=== PATIENT | male | born 1945 | race Caucasian/White ===

== ENCOUNTER 2017-01-26 07:38 | Inpatient (IN) | payer OTHER, MEDICARE ==
[~2017-01-26] VITALS: Ht 182.8 cm; Wt 86.2 kg
--- NOTE | ~2017-01-26 | CON ---
[place], [place] REPORT OF CONSULTATION NAME: AUNG CARBONE UNIT #: [id number] ROOM: [facility] DOCTOR: FINN LOUIS MD BIRTHDATE: [birth year] DOS: 01/26/2017 CARDIOLOGY CONSULTATION REASON FOR CONSULTATION: Near syncope. HISTORY OF PRESENT ILLNESS: The patient is a 72-year-old man who has a history of coronary artery disease and carotid vascular disease along with history of hyperthyroidism. He states that since about 2006. He has had several heart attacks. Two of these were managed in [facility], with angioplasty and stents. The third one resulted in an apparent cardiac arrest. He was life-flighted from the [facility] to one of the [facility] facilities where he did undergo catheterization and angioplasty. All of these records are unavailable to me at this time. He was admitted to the [facility] in April 2016 with a near syncopal episode. He was working outdoors when he began feeling hot and dizzy and lightheaded. He took nitroglycerin and became near syncopal. He was brought to the Emergency Room where he ruled out for an acute myocardial infarction. An echocardiogram showed normal left ventricular size and systolic function with an ejection fraction of 65%. There was stage I left ventricular diastolic relaxation abnormalities with mild mitral insufficiency. A pharmacologic stress test was also done and showed a large fixed inferolateral defect, but no evidence for ischemia, ejection fraction by nuclear perfusion study was 58%. The patient was treated with beta blockers and allowed to go home. 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 The patient states that for the last few weeks, he has noticed increasing dyspnea, in the last few days this has become much worse. He notes that he checks his blood pressure at home with an automated cuff and typically his heart rate is 75-80. For the last 2 days his pulse has been in the 35-40 range. He has noticed increased dyspnea, last night he tried to sleep but felt that he was not breathing properly and that he had stopped breathing. He therefore came to the Emergency Room. He was found to be in second degree heart block (high grade AV block) with 2:1 AV conduction. Beta blockers were stopped and he was hospitalized for further assessment. Today, he feels a bit better, but he is at bed rest. His pulse remains about 45-50; blood pressure is stable at about 130/70. Serial troponin levels have been normal at 0.024 and 0.022 respectively. His electrocardiogram does show high grade AV block with 2:1 conduction. The QRS complexes are fairly narrow. There is no acute ST elevation. PAST MEDICAL HISTORY: Includes; 1. Atherosclerotic heart disease, status post myocardial infarctions in about 2006 and again in about 2009 or 2011. 2. Carotid vascular disease status post right carotid endarterectomy. 3. Type 2 diabetes mellitus. 4. Essential hypertension. [place], [place] REPORT OF CONSULTATION NAME: AUNG CARBONE UNIT #: [id number] ROOM: [facility] DOCTOR: FINN LOUIS MD BIRTHDATE: [birth year] 5. Hyperthyroidism. The patient is status post right partial thyroidectomy and is currently on thyroid suppression with methimazole. 5. The chart indicates a history of melanoma. 6. Recurrent syncope as noted above. MEDICATIONS: Prior to admission included artificial tears p.r.n., aspirin 81 mg daily, clopidogrel 75 mg daily, finasteride 5 mg daily, glipizide 10 mg twice a day, lisinopril 40 mg daily, metformin 500 mg 2 tablets twice a day, methimazole 5 mg daily (the patient has been out of this drug for about a month) metoprolol 50 mg b.i.d., rosuvastatin 20 mg at bedtime, tamsulosin 0.4 mg daily, nitroglycerin sublingually p.r.n. and ketaconazole shampoo p.r.n. ALLERGIES: The patient lists allergies to LATEX, WHICH CAUSES ANAPHYLAXIS AND SIMVASTATIN, WHICH CAUSED RASH. FAMILY HISTORY: His father at age 73 from a heart attack. His mother in her 60s from breast cancer. REVIEW OF SYSTEMS: The patient denies diplopia, loss of vision, or focal weakness. He has had lightheadedness and near syncope, but denies actually passing out recently, he has not had any nausea or vomiting. He denies any fevers, chills or sweats. He did have some aching in his left axilla associated with this and he states that it hurts to take a deep breath on occasions recently. He denies any hemoptysis or hematemesis. He denies change in bowel or bladder habits. He has bleeding from his stools or urine. He denies any peripheral edema. He denies any recent skin rashes. Remainder of the review of systems is negative except as noted above. SOCIAL HISTORY: The patient raises horses for a living. He was an ex-smoker. He does not consume excessive amounts of alcohol. PHYSICAL EXAMINATION: GENERAL: The patient is a well-nourished white male who is awake, alert and oriented. VITAL SIGNS: Pulse is 40 and regular; blood pressure is 132/68. He is afebrile. He weighs 86.2 kg and has a body mass index 25.8. HEENT: Normocephalic, atraumatic. Extraocular muscles are intact. Sclerae are clear. Pupils are equal, round and reactive to light. The oral mucosa is moist. Tongue is midline. NECK: Supple. He has no jugular distention. Carotids are full. I heard no bruits. He had no neck or supraclavicular masses. No thyromegaly. LUNGS: Respirations are unlabored. His chest is clear to auscultation and percussion. He has no presacral edema or chest wall tenderness. CARDIOVASCULAR: His heart has a regular rhythm. He has a fourth heart sound. I did not hear a third heart sound or significant murmur. The pulse is quite slow. The PMI is not displaced. There is no precordial heave, lift or thrill. ABDOMEN: Soft and normally active without masses, organomegaly or bruits. EXTREMITIES: Showed no edema. Peripheral pulses are palpable in the feet. LABORATORY DATA: I reviewed his electrocardiogram; it shows sinus rhythm at a [place], [place] REPORT OF CONSULTATION NAME: AUNG CARBONE UNIT #: [id number] ROOM: [facility] DOCTOR: FINN LOUIS MD BIRTHDATE: [birth year] rate of about 90 with high grade (2:1) AV block. He has no acute ST elevations or depressions. Troponins have been normal as noted above. TSH is pending. Hemoglobin is 14.9, white count 12,600. Sodium 144, potassium 4.3, BUN 34, creatinine 1.45. IMPRESSIONS: 1. Conduction system disorder with high grade AV block. The QRS complexes are fairly narrow indicating that the block is high in his ____ system. He has not had any prolonged pauses as of now. 2. Atherosclerotic heart disease, status post previous myocardial infarctions and stents. 3. Type 2 diabetes mellitus. 4. Hypertension. 5. Carotid vascular disease status post right carotid endarterectomy. 6. History of hyperthyroidism. The patient is status post partial thyroidectomy and is on thyroid suppression with Tapazole. PLAN: We will withhold his metoprolol and observe his heart monitor. I think, however, in the long run it is very likely that he will require placement of a pacemaker. With his atherosclerotic heart disease, beta blockers are certainly indicated in his management and I doubt that he will be able to take beta blockers in the future unless he does have a pacemaker. I have discussed this with him and he would prefer to go to the [facility] for evaluation and placement of pacemaker. I will discuss this with his hospitalist physicians and they can make those arrangements. For now, I would avoid any heart rate slowing medications. I thank the hospitalist group for asking our advice regarding his care. FINN LOUIS MD CM:CONSTR:REPORT OF CONSULTATION 1612 01/26/17 2003 interface
--- NOTE | ~2017-01-26 | EKG ---
[place], [place] ELECTROCARDIOGRAM REPORT NAME: AUNG CARBONE UNIT #: [id number] ROOM: [facility] DOCTOR: FINN LOUIS MD BIRTHDATE: [birth year] DOS: 01/26/2017 TIME: 0747 hours. FINDINGS: 1. Sinus rhythm with sinus rate of 94. 2. High-grade AV block with 2-1 AV block noted. 3. No acute ST changes. 4. Possible left ventricular hypertrophy. 5. Abnormal electrocardiogram. FINN LOUIS MD CM:EKGRPT:ELECTROCARDIOGRAM REPORT 34 17 FINN LOUIS MD
[~2017-01-26 07:38] MED LIST: ALPROSTADIL NAS; AMLODIPINE5 MG PO; ASCRIPTIN ENTER81 MG; ASPIRIN81 M1 PO; CLOPIDOGREL75 MG; CRESTOR20 M1 PO; CRESTOR40 MG PO; CVS LUBRICATING15 ML OP; EFFIENT10 MG PO; FINASTERIDE5 M1 PO; FISH OIL 10001000 MG; FLOMAX0.4 MG PO; FLUOXETINE HCL10 MG PO; FLUOXETINE HCL20 MG PO; GLUCOTROL5 MG PO; KETOCONAZOLE S120 M1 TP; LOPRESSOR50 M1 PO; METFORMIN HYD1000 MG PO; METHIMAZOLE5 M1 PO; METOPROLOL SUCC25 M2 PO; METOPROLOL25 MG PO; Metformin Hydr500 MG PO; NAPROSYN250 MG PO; NITROSTAT0.4 MG SL; OPTIVE SENSITI0.4 ML OP; PLAVIX75 MG PO; POLYMYCIN B/TRI10 ML OP; PRINIVIL20 MG PO; TAPAZOLE5 MG PO; [UNRECOGNIZED DRUG - OTHER] PO; [UNRECOGNIZED DRUG - OTHER] PO
[2017-01-26 07:47] VITALS: BP 170/62
[2017-01-26 08:06] LABS: BASO % 0.3 % (0.0-1.0); EOS # 0.1 10*3/uL (0.0-0.4); HEMATOCRIT 45.7 % (42.0-52.0); HEMOGLOBIN 14.9 g/dl (14.0-18.0); IG # 0.1 10*3/uL (0.0-0.1); LYMPH # 1.4 10*3/uL (1.3-4.4); LYMPH % 11.4 % (27.0-41.0); MEAN CELL VOLUME 84.3 fl (80.0-94.0); MEAN CORPUSCULAR HGB 27.5 pg (27.0-31.0); MEAN CORPUSCULAR HGB CONC 32.6 g/dl (33.0-37.0); MEAN PLATELET VOLUME 10.5 fl (9.6-12.3); MONO # 1.2 10*3/uL (0.1-1.0); MONO % 9.3 % (3.0-9.0); NEUT # 9.8 10*3/uL (2.3-7.9); NEUT % 77.5 % (47.0-73.0); PLATELET COUNT AUTOMATED 167 10*3/uL (130-400); RED BLOOD COUNT 5.42 10*6/uL (4.50-5.90); RED CELL DISTRI WIDTH 15.9 % (0-14.5); WHITE BLOOD COUNT 12.6 10*3/uL (4.8-10.8)
[2017-01-26] MEDS ORDERED: LISINOPRIL40 MG PO (08:14)
[2017-01-26] MEDS ORDERED: FLOMAX0.4 MG PO (08:15)
[2017-01-26 08:17] LABS: PROTHROMBIN TIME 10.6 SECONDS (9.0-12.4)
[2017-01-26] MEDS ORDERED: GLUCOSE4 G1 PO (08:19)
[2017-01-26] MEDS ORDERED: LOPRESSOR50 M1 PO (08:21)
[2017-01-26] MEDS ORDERED: PROSCAR5 M1 PO (08:22)
[2017-01-26 08:23] LABS: ALBUMIN 3.3 gm/dl (3.1-4.5); BILIRUBIN, TOTAL 0.8 mg/dl (0.2-1.0); POTASSIUM 4.3 mmol/L (3.5-5.1); TOTAL PROTEIN 6.5 gm/dL (6.4-8.2)
[2017-01-26 08:24] LABS: TROPONIN I 0.024 ng/ml (<0.045)
[2017-01-26] MEDS ORDERED: GLIPIZIDE10 M2 PO (08:24)
[2017-01-26] MEDS ORDERED: METFORMIN500 MG PO (08:25)
[2017-01-26 09:30] VITALS: BP 142/88
[2017-01-26 11:28] VITALS: BP 136/90
[2017-01-26 12:00] VITALS: BP 132/68
[2017-01-26 12:16] LABS: CKMB 3.9 ng/ml (0.5-3.6)
[2017-01-26 16:00] VITALS: BP 120/69; BP 136/66
[2017-01-26 19:00] LABS: CKMB 3.6 ng/ml (0.5-3.6)
[2017-01-26 19:42] LABS: TROPONIN I 0.02 ng/ml (<0.045)
[2017-01-26 20:00] VITALS: BP 139/61
== END 2017-01-26 22:53 | disposition short-term general hospital (02) | DRG 308 ==
LOC: ED 07:38 → EDHOLD 11:03 → ICCU 11:45
PROVIDERS: Emergency Medicine; Family Medicine
DX: I44.1 Atrioventricular block, second degree (principal); N17.0 Acute kidney failure with tubular necrosis; I10 Essential (primary) hypertension; E78.5 Hyperlipidemia, unspecified; E11.65 Type 2 diabetes mellitus with hyperglycemia; E05.90 Thyrotoxicosis, unspecified without thyrotoxic crisis or storm; I25.10 Atherosclerotic heart disease of native coronary artery without angina pectoris; D72.829 Elevated white blood cell count, unspecified; Z95.5 Presence of coronary angioplasty implant and graft; Z85.46 Personal history of malignant neoplasm of prostate; Z87.891 Personal history of nicotine dependence; Z82.49 Family history of ischemic heart disease and other diseases of the circulatory system; Z80.3 Family history of malignant neoplasm of breast; Z91.040 Latex allergy status; Z88.8 Allergy status to other drugs, medicaments and biological substances; Z79.82 Long term (current) use of aspirin; Z79.899 Other long term (current) drug therapy; Z79.84 Long term (current) use of oral hypoglycemic drugs; I25.2 Old myocardial infarction

== ENCOUNTER 2017-04-14 12:40 | Emergency (ER) | payer OTHER, MEDICARE ==
[~2017-04-14] VITALS: Ht 182.8 cm; Wt 82.6 kg
[~2017-04-14 12:40] MED LIST changes: +GLIPIZIDE10 M2 PO; +GLUCOSE4 G1 PO; +LISINOPRIL40 MG PO; +METFORMIN500 MG PO; +PROSCAR5 M1 PO
[2017-04-14] MEDS ORDERED: ELIQUIS2.5 M1 PO (12:47)
[2017-04-14] MEDS ORDERED: KEFLEX500 M1 PO (13:17)
== END 2017-04-14 13:30 | disposition home or self-care (01) ==
LOC: ED 12:40
DX: S80.211A Abrasion, right knee, initial encounter (principal); L08.9 Local infection of the skin and subcutaneous tissue, unspecified; I10 Essential (primary) hypertension; E78.5 Hyperlipidemia, unspecified; Z87.891 Personal history of nicotine dependence; E11.9 Type 2 diabetes mellitus without complications; Z95.5 Presence of coronary angioplasty implant and graft; Z88.8 Allergy status to other drugs, medicaments and biological substances; Z91.040 Latex allergy status; Z79.01 Long term (current) use of anticoagulants; Z79.82 Long term (current) use of aspirin; Z79.899 Other long term (current) drug therapy; W20.8XXA Other cause of strike by thrown, projected or falling object, initial encounter; Y93.89 Activity, other specified; Y92.9 Unspecified place or not applicable; Y99.9 Unspecified external cause status

== ENCOUNTER 2017-10-16 10:16 | Inpatient (IN) | payer OTHER ==
[~2017-10-16] VITALS: Ht 185.4 cm; Wt 84.8 kg
[2017-10-16] VITALS (7 sets, daily range): BP systolic 91–127; BP diastolic 45–86
[~2017-10-16 10:16] MED LIST changes: +ELIQUIS2.5 M1 PO; +KEFLEX500 M1 PO
[2017-10-16 10:33] LABS: BASO % 0.4 % (0.0-1.0); HEMATOCRIT 48.7 % (42.0-52.0); HEMOGLOBIN 16.1 g/dl (14.0-18.0); LYMPH # 0.6 10*3/uL (1.3-4.4); LYMPH % 7.4 % (27.0-41.0); MEAN CELL VOLUME 85.7 fl (80.0-94.0); MEAN CORPUSCULAR HGB 28.3 pg (27.0-31.0); MEAN CORPUSCULAR HGB CONC 33.1 g/dl (33.0-37.0); MEAN PLATELET VOLUME 10.3 fl (9.6-12.3); MONO % 13.2 % (3.0-9.0); NEUT # 6.2 10*3/uL (2.3-7.9); NEUT % 78.2 % (47.0-73.0); PLATELET COUNT AUTOMATED 138 10*3/uL (130-400); RED BLOOD COUNT 5.68 10*6/uL (4.50-5.90); RED CELL DISTRI WIDTH 15.6 % (0-14.5); WHITE BLOOD COUNT 7.9 10*3/uL (4.8-10.8)
[2017-10-16] MEDS ORDERED: CRESTOR20 M1 PO (10:38)
[2017-10-16] MEDS ORDERED: ASPIR 8181 MG PO (10:42)
[2017-10-16] MEDS ORDERED: TAPAZOLE5 MG PO (10:43)
[2017-10-16] MEDS ORDERED: ELIQUIS5 M1 PO (10:43)
[2017-10-16] MEDS ORDERED: DONEPEZIL HYDROC5 M1 PO (10:44)
[2017-10-16] MEDS ORDERED: OMEPRAZOLE MAGN20 MG PO (10:44)
[2017-10-16] MEDS ORDERED: PROSCAR5 M1 PO (10:45)
[2017-10-16] MEDS ORDERED: SARAFEM PO (10:45)
[2017-10-16] MEDS ORDERED: GLUCOTROL10 MG PO (10:46)
[2017-10-16] MEDS ORDERED: TAMSULOSIN HCL0.4 MG PO (10:46)
[2017-10-16] MEDS ORDERED: METFORMIN HCL500 M2 PO (10:47)
[2017-10-16 10:54] LABS: ACT PARTIAL THROMBO TIME 30.1 SECONDS (20.8-31.5); INTERNATIONAL NORM RATIO 1.1 (2.0-3.5)
[2017-10-16 10:59] LABS: ALBUMIN 3.3 gm/dl (3.1-4.5); ALKALINE PHOSPHATASE 104 U/L (45-117); BUN 30 mg/dl (7-24); CHLORIDE 101 mmol/L (98-107); CREATININE 1.12 mg/dL (0.70-1.30); SGOT/AST 30 IU/L (3-35); SGPT/ALT 46 U/L (12-78); SODIUM 136 mmol/L (136-145); TOTAL PROTEIN 6.4 gm/dL (6.4-8.2)
[2017-10-16 11:00] LABS: TROPONIN I 0.028 ng/ml (<0.045)
[2017-10-17 06:52] LABS: BASO % 0.5 % (0.0-1.0); EOS % 0.2 % (1.0-4.0); HEMATOCRIT 44.9 % (42.0-52.0); HEMOGLOBIN 15.1 g/dl (14.0-18.0); LYMPH # 0.6 10*3/uL (1.3-4.4); LYMPH % 10.8 % (27.0-41.0); MEAN CELL VOLUME 85.9 fl (80.0-94.0); MEAN CORPUSCULAR HGB 28.9 pg (27.0-31.0); MEAN CORPUSCULAR HGB CONC 33.6 g/dl (33.0-37.0); MEAN PLATELET VOLUME 10.4 fl (9.6-12.3); MONO % 16.4 % (3.0-9.0); NEUT # 4.2 10*3/uL (2.3-7.9); NEUT % 71.3 % (47.0-73.0); PLATELET COUNT AUTOMATED 135 10*3/uL (130-400); RED BLOOD COUNT 5.23 10*6/uL (4.50-5.90); RED CELL DISTRI WIDTH 15.7 % (0-14.5); WHITE BLOOD COUNT 5.9 10*3/uL (4.8-10.8)
[2017-10-17 07:36] LABS: BUN 35 mg/dl (7-24); CHLORIDE 101 mmol/L (98-107); CHOLESTEROL 87 mg/dL (<200); CREATININE 1.29 mg/dL (0.70-1.30); HDL CHOLESTEROL 35 mg/dl (40-60); LDL CHOLESTEROL 32 mg/dL (9-159); PHOSPHOROUS 3.4 mg/dL (2.5-4.9); POTASSIUM 3.7 mmol/L (3.5-5.1); SODIUM 136 mmol/L (136-145); TRIGLYCERIDES 98 mg/dl (<150); VLDL CHOLESTEROL 20 mg/dL (6-40)
[2017-10-17 07:41] LABS: THYROID STIM HORMONE (HS) 0.713 uIU/ml (0.358-4.75)
[2017-10-17 08:00] VITALS: BP 117/55
[2017-10-17 08:03] LABS: VITAMIN D, 25-HYDROXY 28.7 ng/mL (30-100)
[2017-10-17 12:00] VITALS: BP 137/70
[2017-10-17] MEDS ORDERED: VITAMIN D-32000 UNI1 PO (12:29)
[2017-10-17] MEDS ORDERED: IMDUR SA30 MG PO (14:23)
[2017-10-17 16:00] VITALS: BP 160/80
== END 2017-10-17 17:23 | disposition home or self-care (01) | DRG 392 ==
LOC: ED 10:16 → 4E 11:13 → EDHOLD 11:13 → 4E 11:23
PROVIDERS: Emergency Medicine; Student in an Organized Health Care Education/Training Program
PROC: 3E073KZ Introduction of Other Diagnostic Substance into Coronary Artery, Percutaneous Approach (ICD-10-PCS; principal; 2017-10-17)
PROC: 4A02XM4 Measurement of Cardiac Total Activity, External Approach (ICD-10-PCS; principal; 2017-10-17)
DX: K21.9 Gastro-esophageal reflux disease without esophagitis (principal); D68.59 Other primary thrombophilia; E11.65 Type 2 diabetes mellitus with hyperglycemia; I44.1 Atrioventricular block, second degree; I48.0 Paroxysmal atrial fibrillation; D72.9 Disorder of white blood cells, unspecified; I25.118 Atherosclerotic heart disease of native coronary artery with other forms of angina pectoris; E78.5 Hyperlipidemia, unspecified; J20.9 Acute bronchitis, unspecified; D72.810 Lymphocytopenia; I25.2 Old myocardial infarction; Z95.0 Presence of cardiac pacemaker; Z95.5 Presence of coronary angioplasty implant and graft; Z87.891 Personal history of nicotine dependence; Z91.040 Latex allergy status; Z79.01 Long term (current) use of anticoagulants; Z90.79 Acquired absence of other genital organ(s); Z79.82 Long term (current) use of aspirin; Z85.46 Personal history of malignant neoplasm of prostate; Z79.84 Long term (current) use of oral hypoglycemic drugs; Z79.899 Other long term (current) drug therapy; Z88.8 Allergy status to other drugs, medicaments and biological substances; Z82.49 Family history of ischemic heart disease and other diseases of the circulatory system; Z83.3 Family history of diabetes mellitus; Z82.3 Family history of stroke; Z80.3 Family history of malignant neoplasm of breast

== ENCOUNTER → 2018-04-02 | Outpatient (CLI) | payer MEDICARE ==
[~2018-04-02] MED LIST changes: +ASPIR 8181 MG PO; +DONEPEZIL HYDROC5 M1 PO; +ELIQUIS5 M1 PO; +GLUCOTROL10 MG PO; +IMDUR SA30 MG PO; +METFORMIN HCL500 M2 PO; +OMEPRAZOLE MAGN20 MG PO; +SARAFEM PO; +TAMSULOSIN HCL0.4 MG PO; +VITAMIN D-32000 UNI1 PO
[2018-04-02 12:45] LABS: BASO % 0.2 % (0.0-1.0); EOS % 0.1 % (1.0-4.0); HEMATOCRIT 45.3 % (42.0-52.0); LYMPH # 0.7 10*3/uL (1.3-4.4); LYMPH % 5.2 % (27.0-41.0); MEAN CELL VOLUME 89.9 fl (80.0-94.0); MEAN CORPUSCULAR HGB 29.8 pg (27.0-31.0); MEAN CORPUSCULAR HGB CONC 33.1 g/dl (33.0-37.0); MEAN PLATELET VOLUME 10.6 fl (9.6-12.3); MONO # 0.6 10*3/uL (0.1-1.0); MONO % 4.1 % (3.0-9.0); NEUT # 12.6 10*3/uL (2.3-7.9); NEUT % 89.6 % (47.0-73.0); PLATELET COUNT AUTOMATED 199 10*3/uL (130-400); RED BLOOD COUNT 5.04 10*6/uL (4.50-5.90); RED CELL DISTRI WIDTH 12.7 % (0-14.5); WHITE BLOOD COUNT 14.1 10*3/uL (4.8-10.8)
== END | disposition home or self-care (01) ==
LOC: LAB 12:21
PROVIDERS: Physician Assistant
DX: E11.9 Type 2 diabetes mellitus without complications (principal); M25.40 Effusion, unspecified joint

== ENCOUNTER → 2018-04-23 | Outpatient (CLI) | payer MEDICARE | END | disposition home or self-care (01) | LOC: CT 14:50 | DX: M25.462 Effusion, left knee (principal) ==

== ENCOUNTER 2018-10-18 15:17 | Emergency (ER) | payer MEDICARE ==
[~2018-10-18] VITALS: Ht 152.4 cm; Wt 86.2 kg
[2018-10-18 15:41] LABS: BASO % 0.3 % (0.0-1.0); EOS # 0.1 10*3/uL (0.0-0.4); EOS % 0.9 % (1.0-4.0); HEMATOCRIT 46.1 % (42.0-52.0); HEMOGLOBIN 14.8 g/dl (14.0-18.0); LYMPH # 0.8 10*3/uL (1.3-4.4); LYMPH % 8.8 % (27.0-41.0); MEAN CORPUSCULAR HGB 28.2 pg (27.0-31.0); MEAN CORPUSCULAR HGB CONC 32.1 g/dl (33.0-37.0); MEAN PLATELET VOLUME 10.5 fl (9.6-12.3); MONO # 0.9 10*3/uL (0.1-1.0); MONO % 9.8 % (3.0-9.0); NEUT # 7.5 10*3/uL (2.3-7.9); PLATELET COUNT AUTOMATED 200 10*3/uL (130-400); RED BLOOD COUNT 5.24 10*6/uL (4.50-5.90); RED CELL DISTRI WIDTH 14.9 % (0-14.5); WHITE BLOOD COUNT 9.4 10*3/uL (4.8-10.8)
[2018-10-18 15:58] LABS: ALBUMIN 3.5 gm/dl (3.1-4.5); ALKALINE PHOSPHATASE 98 U/L (45-117); BUN 29 mg/dl (7-24); CHLORIDE 104 mmol/L (98-107); CREATININE 1.36 mg/dL (0.70-1.30); POTASSIUM 4.3 mmol/L (3.5-5.1); SGOT/AST 23 IU/L (3-35); SGPT/ALT 37 U/L (12-78); SODIUM 139 mmol/L (136-145); TOTAL PROTEIN 6.6 gm/dL (6.4-8.2)
[2018-10-18 16:10] LABS: BILIRUBIN NEGATIVE (NEGATIVE); BLOOD NEGATIVE (NEGATIVE); CLARITY SL CLOUDY (CLEAR); COLOR YELLOW (YELLOW); GLUCOSE NEGATIVE (NEGATIVE); KETONE TRACE (NEGATIVE); LEUKO ESTERASE NEGATIVE (NEGATIVE); NITRITE NEGATIVE (NEGATIVE); PH 5.5 (5.0-9.0); UROBILINOGEN 0.2 E.U./dl (0.2-1.0)
[2018-10-18 16:18] LABS: ACT PARTIAL THROMBO TIME 29.7 SECONDS (20.8-31.5); INTERNATIONAL NORM RATIO 1.1 (2.0-3.5)
[2018-10-18 16:57] LABS: BACTERIA 1+; EPITHELIAL CELLS 0-2; MUCOUS 1+; RBC 0-2 rbc/hpf (0-2)
[2018-10-18] MEDS ORDERED: SEPTDS PO (17:00)
== END 2018-10-18 17:15 | disposition home or self-care (01) ==
LOC: ED 15:17
PROVIDERS: Nurse Practitioner Family
DX: R30.0 Dysuria (principal); R35.0 Frequency of micturition; I10 Essential (primary) hypertension; R79.1 Abnormal coagulation profile; I48.91 Unspecified atrial fibrillation; I25.10 Atherosclerotic heart disease of native coronary artery without angina pectoris; E78.5 Hyperlipidemia, unspecified; E11.9 Type 2 diabetes mellitus without complications; Z91.040 Latex allergy status; Z88.8 Allergy status to other drugs, medicaments and biological substances; Z79.899 Other long term (current) drug therapy; Z79.82 Long term (current) use of aspirin; Z95.0 Presence of cardiac pacemaker; Z87.891 Personal history of nicotine dependence

== ENCOUNTER 2019-06-08 18:15 | Inpatient (IN) | payer MEDICARE ==
[~2019-06-08] VITALS: Ht 180.3 cm; Wt 83.7 kg
[~2019-06-08 18:15] MED LIST changes: +SEPTDS PO
[2019-06-08 18:29] VITALS: BP 143/62
[2019-06-08 18:58] VITALS: BP 132/66
--- NOTE | 2019-06-08 18:58 | NUR ---
NO C/O AT THIS TIME. AT BEDSIDE.O2 ON.MONITOR NSR 60---JOSE BALL RN
[2019-06-08 19:20] LABS: BASO # 0.1 10*3/uL (0.0-0.1); BASO % 0.6 % (0.0-1.0); EOS # 0.2 10*3/uL (0.0-0.4); EOS % 1.6 % (1.0-4.0); HEMATOCRIT 36.5 % (42.0-52.0); HEMOGLOBIN 12.1 g/dl (14.0-18.0); LYMPH # 0.8 10*3/uL (1.3-4.4); LYMPH % 7.8 % (27.0-41.0); MEAN CORPUSCULAR HGB 29.5 pg (27.0-31.0); MEAN CORPUSCULAR HGB CONC 33.2 g/dl (33.0-37.0); MONO # 0.8 10*3/uL (0.1-1.0); MONO % 7.6 % (3.0-9.0); NEUT # 8.1 10*3/uL (2.3-7.9); PLATELET COUNT AUTOMATED 160 10*3/uL (130-400); RED CELL DISTRI WIDTH 13.6 % (0-14.5); WHITE BLOOD COUNT 9.9 10*3/uL (4.8-10.8)
[2019-06-08 19:38] LABS: ALBUMIN 3.4 gm/dl (3.1-4.5); ALKALINE PHOSPHATASE 113 U/L (45-117); BUN 30 mg/dl (7-24); CHLORIDE 110 mmol/L (98-107); CREATININE 1.23 mg/dL (0.70-1.30); POTASSIUM 4.5 mmol/L (3.5-5.1); SGOT/AST 28 IU/L (3-35); SGPT/ALT 39 U/L (12-78); SODIUM 143 mmol/L (136-145); TOTAL PROTEIN 6.2 gm/dL (6.4-8.2)
[2019-06-08 19:39] LABS: TROPONIN I < 0.015 ng/ml (<0.045)
[2019-06-08 21:01] VITALS: BP 130/78
[2019-06-08 22:38] VITALS: BP 176/60
--- NOTE | 2019-06-08 22:38 | NUR ---
A 74, admitted to , under the services of CECIL Silva DO with a diagnosis of CHEST PAIN. 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 CARDIAC HX . Patient arrived via bed from ER. Monitor applied. Initial assessment completed. Vital signs taken and recorded. CECIL SILVA DO notified of admission to the unit. Orders received. See assessment for past medical history, medications and allergies. Patient and/or family oriented to unit. [facility] visitation policy reviewed. Clothing/patient valuable form completed. MANDY BANERJEE
--- NOTE | 2019-06-09 | NUR ---
SLEEPING. RESPIRATIONS EASY. LUNGS DIMINISHED, CLEAR. PULSE OX 99% RA. IV FLUIDS INFUSING PER ORDER. CALL LIGHT WITHIN REACH
[2019-06-09 03:55] LABS: BILIRUBIN NEGATIVE (NEGATIVE); BLOOD NEGATIVE (NEGATIVE); CLARITY CLEAR (CLEAR); COLOR YELLOW (YELLOW); GLUCOSE NEGATIVE (NEGATIVE); KETONE NEGATIVE (NEGATIVE); LEUKO ESTERASE NEGATIVE (NEGATIVE); NITRITE NEGATIVE (NEGATIVE); SPECIFIC GRAVITY 1.015 (1.005-1.030); UROBILINOGEN 0.2 E.U./dl (0.2-1.0)
[2019-06-09 04:02] LABS: WBC 0-2 wbc/hpf (0-5)
[2019-06-09 06:41] LABS: BASO # 0.1 10*3/uL (0.0-0.1); BASO % 0.7 % (0.0-1.0); EOS # 0.2 10*3/uL (0.0-0.4); EOS % 3.2 % (1.0-4.0); HEMATOCRIT 35.9 % (42.0-52.0); HEMOGLOBIN 11.8 g/dl (14.0-18.0); LYMPH # 1.1 10*3/uL (1.3-4.4); LYMPH % 15.6 % (27.0-41.0); MEAN CELL VOLUME 88.4 fl (80.0-94.0); MEAN CORPUSCULAR HGB 29.1 pg (27.0-31.0); MEAN CORPUSCULAR HGB CONC 32.9 g/dl (33.0-37.0); MEAN PLATELET VOLUME 10.6 fl (9.6-12.3); NEUT # 4.5 10*3/uL (2.3-7.9); NEUT % 65.9 % (47.0-73.0); PLATELET COUNT AUTOMATED 162 10*3/uL (130-400); RED BLOOD COUNT 4.06 10*6/uL (4.50-5.90); RED CELL DISTRI WIDTH 13.6 % (0-14.5); WHITE BLOOD COUNT 6.8 10*3/uL (4.8-10.8)
--- NOTE | 2019-06-09 06:45 | NUR ---
DR CANCHOLA CONTACTED, WOUND CARE ORDERS RECEIVED
[2019-06-09 07:18] LABS: ALBUMIN 3.2 gm/dl (3.1-4.5); ALKALINE PHOSPHATASE 112 U/L (45-117); BUN 25 mg/dl (7-24); CHLORIDE 108 mmol/L (98-107); CHOLESTEROL 109 mg/dL (<200); CREATININE 1.01 mg/dL (0.70-1.30); HDL CHOLESTEROL 43 mg/dl (40-60); LDL CHOLESTEROL 45 mg/dL (9-159); PHOSPHOROUS 3.2 mg/dL (2.5-4.9); POTASSIUM 3.6 mmol/L (3.5-5.1); SGOT/AST 23 IU/L (3-35); SGPT/ALT 37 U/L (12-78); SODIUM 141 mmol/L (136-145); TOTAL PROTEIN 5.9 gm/dL (6.4-8.2); TRIGLYCERIDES 106 mg/dl (<150); VLDL CHOLESTEROL 21 mg/dL (6-40)
[2019-06-09 07:23] LABS: THYROID STIM HORMONE (HS) 0.851 uIU/ml (0.358-4.75)
[2019-06-09 07:57] LABS: VITAMIN D, 25-HYDROXY 59.7 ng/mL (30-100)
[2019-06-09 08:00] VITALS: BP 138/78
--- NOTE | 2019-06-09 08:11 | NUR ---
DR. HERRMANN NOTIFIED OF NEW CONSULT AT THIS TIME.
--- NOTE | 2019-06-09 08:24 | NUR ---
Michael CARBONE [id number] Please refer to the physician's history and physical for past medical history, comorbid conditions, and allergies. Diagnosis: CHEST PAIN Jarocho Score: 17,AT RISK WOUND DESCRIPTIONS: Wound Number: 1 Location of the wound: right upper chest Type of wound: traumatic Thickness: Partial Size: 1.2cm x 0.4cm x 0.1cm Tunneling: none Undermining: none Sinus Tract: none Presence of Exudate: Serosanguineous Amount: Light Color: Red Odor: None Periwound Skin Appearance: Normal Wound edges: approximated Pain (associated with wound): none at time of assessment How does patient state this happened? pt stated he was grinding a metal su in half yesterday and a particle broke off and hit him in the chest. Surface the patient is resting on: Isoflex SKIN PREVENTION RECOMMENDATION: 1. Pressure redistribution support surface as appropriate 2. Elevate heels 3. Remove boots/TEDS every shift and reapply 4. Head of bed 30 degrees as tolerated 5. Assess nutrition and hydration 6. Manage moisture 7. Avoid the use of containment devices while in bed 8. Use absorptive products on surfaces limit layers of linens on bed 9. Turn and reposition every 1-2 hours in bed and every 1 hour in chair as tolerated 10. Weight shifts every 15 minutes while up in chair 11. Offloading with pillows or device to keep heels elevated off bed 12. Monitor skin at least every shift 13. Inspect under medical devices twice a day WOUND TREATMENT RECOMMENDATIONS: Continue partial thickness guidelines: Cleanse right upper chest with nss and apply sureprep around the wound hydrogel to wound bed and cover with optifoam gentle daily and prn for soiling. Patient stated he will care for this area when he is discharged.
--- NOTE | 2019-06-09 09:00 | NUR ---
[employer] in to talk to patient. Patient states lives at home with . There are few steps in the home. 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 VIDA SENA
--- NOTE | 2019-06-09 12:08 | NUR ---
INFORMED CONSENT SIGNED FOR LEXISCAN STRESS TEST WITH DR. HERRMANN. RESTING EKG ATRIAL PACED, HR 60, BP 138/64. PULSE OX 98% AND LUNGS CLEAR. COMPLETED ONE MINUTE OF LEXISCAN PROTOCOL RECEIVING LEXISCAN 0.4MG OVER 10 SECONDS. NO ARRHYTHMIAS OR ST CHANGES NOTED. PT C/O FEELING DIZZY. LAST RECOVERY HR 74, BP 104/60. WAITING NUCLEAR SCANNING IN STABLE CONDIITON.
--- NOTE | 2019-06-09 12:15 | NUR ---
Nutritional Support Services Note: Abrasions and scrap noted to upper chest. Appetite is good for meals. Encouraged good po intake of all meals and increase protein needs. Pt is NPO at this time for stress test. Will follow as needed. No Nutrition Intervention needed at time. Georgina Armas Rdn Ld
[2019-06-09 16:00] VITALS: BP 119/63
[2019-06-09] MEDS ORDERED: ALDACTONE25 MG PO (17:34)
--- NOTE | 2019-06-09 18:19 | NUR ---
Discharge instructions reviewed with patient/family. Patient receptive and verbalizes understanding. Follow-up care arranged. Written instructions given to patient/family. [place] DISCONTINUED. POLICE DEPARTMENT SECRETARY DISCONTINUED. PATIENT AMBULATORY OFF FLOOR. DAV MACHUCA
--- NOTE | 2019-06-09 18:22 | NUR ---
PATIENT REFUSED WOUND PHOTO.
== END 2019-06-09 18:19 | disposition home or self-care (01) | DRG 194 ==
LOC: ED 18:15 → EDHOLD 21:25 → 4E 21:25
PROVIDERS: Emergency Medicine; Student in an Organized Health Care Education/Training Program; ADMIT Internal Medicine
DX: R09.1 Pleurisy (principal); D68.59 Other primary thrombophilia; M94.0 Chondrocostal junction syndrome [Tietze]; K21.9 Gastro-esophageal reflux disease without esophagitis; E86.0 Dehydration; I48.91 Unspecified atrial fibrillation; I25.10 Atherosclerotic heart disease of native coronary artery without angina pectoris; E78.5 Hyperlipidemia, unspecified; I10 Essential (primary) hypertension; F41.9 Anxiety disorder, unspecified; E05.90 Thyrotoxicosis, unspecified without thyrotoxic crisis or storm; I25.2 Old myocardial infarction; Z95.0 Presence of cardiac pacemaker; Z91.040 Latex allergy status; Z85.46 Personal history of malignant neoplasm of prostate; Z95.5 Presence of coronary angioplasty implant and graft; Z87.891 Personal history of nicotine dependence; Z80.3 Family history of malignant neoplasm of breast; Z82.49 Family history of ischemic heart disease and other diseases of the circulatory system; Z82.3 Family history of stroke; Z83.3 Family history of diabetes mellitus; Z79.82 Long term (current) use of aspirin; Z79.4 Long term (current) use of insulin; Z79.899 Other long term (current) drug therapy

== ENCOUNTER → 2020-05-17 | Outpatient (CLI) | payer MEDICARE ==
[~2020-05-17] MED LIST changes: +ALDACTONE25 MG PO
[2020-05-17 14:59] LABS: HEMATOCRIT 34.6 % (42.0-52.0); MEAN CELL VOLUME 89.2 fl (80.0-94.0); MEAN CORPUSCULAR HGB 29.9 pg (27.0-31.0); MEAN CORPUSCULAR HGB CONC 33.5 g/dl (33.0-37.0); RED BLOOD COUNT 3.88 10*6/uL (4.50-5.90); RED CELL DISTRI WIDTH 12.7 % (0-14.5); WHITE BLOOD COUNT 8.5 10*3/uL (4.8-10.8)
[2020-05-17 15:10] LABS: CREATININE 1.62 mg/dL (0.70-1.30); POTASSIUM 4.7 mmol/L (3.5-5.1)
== END | disposition home or self-care (01) ==
LOC: LAB 13:49 → CARD 14:00
PROVIDERS: Internal Medicine Interventional Cardiology
DX: I08.0 Rheumatic disorders of both mitral and aortic valves (principal); I11.9 Hypertensive heart disease without heart failure; I25.10 Atherosclerotic heart disease of native coronary artery without angina pectoris; I48.0 Paroxysmal atrial fibrillation; I25.5 Ischemic cardiomyopathy; E78.2 Mixed hyperlipidemia; R06.09 Other forms of dyspnea; Z79.01 Long term (current) use of anticoagulants; Z95.0 Presence of cardiac pacemaker

== ENCOUNTER 2020-07-25 16:09 | Emergency (ER) | payer OTHER ==
[~2020-07-25] VITALS: Ht 180.3 cm; Wt 87.1 kg
[2020-07-25 17:32] LABS: BASO # 0.1 10*3/uL (0.0-0.1); BASO % 0.6 % (0.0-1.0); EOS # 0.1 10*3/uL (0.0-0.4); EOS % 1.7 % (1.0-4.0); HEMATOCRIT 40.2 % (42.0-52.0); LYMPH # 1.4 10*3/uL (1.3-4.4); LYMPH % 16.9 % (27.0-41.0); MEAN CELL VOLUME 88.5 fl (80.0-94.0); MEAN CORPUSCULAR HGB 29.3 pg (27.0-31.0); MEAN CORPUSCULAR HGB CONC 33.1 g/dl (33.0-37.0); MEAN PLATELET VOLUME 10.5 fl (9.6-12.3); MONO # 0.7 10*3/uL (0.1-1.0); MONO % 8.9 % (3.0-9.0); NEUT # 5.9 10*3/uL (2.3-7.9); NEUT % 71.4 % (47.0-73.0); PLATELET COUNT AUTOMATED 207 10*3/uL (130-400); RED BLOOD COUNT 4.54 10*6/uL (4.50-5.90); RED CELL DISTRI WIDTH 12.9 % (0-14.5); WHITE BLOOD COUNT 8.3 10*3/uL (4.8-10.8)
[2020-07-25 17:43] LABS: ACT PARTIAL THROMBO TIME 32.8 SECONDS (20.0-32.1)
[2020-07-25 17:49] LABS: ALBUMIN 3.5 gm/dl (3.1-4.5); ALKALINE PHOSPHATASE 135 U/L (45-117); BUN 28 mg/dl (7-24); CHLORIDE 106 mmol/L (98-107); CREATININE 1.21 mg/dL (0.70-1.30); LIPASE 219 U/L (73-393); SGOT/AST 38 IU/L (3-35); SGPT/ALT 60 U/L (12-78); SODIUM 139 mmol/L (136-145); TOTAL PROTEIN 6.8 gm/dL (6.4-8.2)
[2020-07-25 18:23] LABS: BILIRUBIN Negative (Negative); BLOOD Negative (Negative); CLARITY Clear (Clear); COLOR Dark Yellow (Yellow); GLUCOSE Trace (Negative); KETONE Trace (Negative); LEUKO ESTERASE Negative (Negative); NITRITE Negative (Negative); SPECIFIC GRAVITY >= 1.030 (1.001-1.030)
[2020-07-25 18:40] LABS: EPITHELIAL CELLS 0-2; WBC 0-2 wbc/hpf (0-5)
[2020-07-25] MEDS ORDERED: DOXYCYCLINE100 M3 PO (20:44)
== END 2020-07-25 20:48 | disposition home or self-care (01) ==
LOC: ED 16:09
PROVIDERS: Nurse Practitioner Family
DX: N45.1 Epididymitis (principal); K92.1 Melena; I48.91 Unspecified atrial fibrillation; I25.2 Old myocardial infarction; E78.5 Hyperlipidemia, unspecified; I10 Essential (primary) hypertension; I25.10 Atherosclerotic heart disease of native coronary artery without angina pectoris; Z91.040 Latex allergy status; Z88.8 Allergy status to other drugs, medicaments and biological substances; Z79.899 Other long term (current) drug therapy; Z79.82 Long term (current) use of aspirin; Z79.01 Long term (current) use of anticoagulants

== ENCOUNTER → 2021-01-25 | Outpatient (CLI) | payer MEDICARE ==
[~2021-01-25] MED LIST changes: +DOXYCYCLINE100 M3 PO
== END | disposition home or self-care (01) ==
LOC: RAD 13:47
PROVIDERS: ATTEND Chiropractor
DX: R07.89 Other chest pain (principal); I51.7 Cardiomegaly

== ENCOUNTER → 2021-02-09 | Outpatient (CLI) | payer MEDICARE ==
[2021-02-09 11:15] LABS: ALBUMIN 3.5 gm/dl (3.1-4.5); BILIRUBIN, DIRECT 0.2 mg/dL (0.0-0.2)
== END | disposition home or self-care (01) ==
LOC: LAB 10:37
PROVIDERS: ATTEND Urology
DX: Z12.5 Encounter for screening for malignant neoplasm of prostate (principal); N40.1 Benign prostatic hyperplasia with lower urinary tract symptoms; E29.0 Testicular hyperfunction

== ENCOUNTER → 2021-09-27 | Outpatient (CLI) | payer MEDICARE | END | disposition home or self-care (01) | LOC: ORTHO 03:41 | PROVIDERS: ATTEND Orthopaedic Surgery | DX: M19.012 Primary osteoarthritis, left shoulder (principal); Z98.890 Other specified postprocedural states ==

== ENCOUNTER → 2022-01-16 | Outpatient (CLI) | payer MEDICARE ==
[2022-01-16 12:23] LABS: TOTAL PROTEIN 7.3 gm/dL (6.4-8.2)
== END | disposition home or self-care (01) ==
LOC: LAB 11:52
PROVIDERS: ATTEND Urology
DX: E29.1 Testicular hypofunction (principal); N40.1 Benign prostatic hyperplasia with lower urinary tract symptoms

== ENCOUNTER → 2022-02-06 | Outpatient (CLI) | payer MEDICARE ==
[2022-02-06 11:06] LABS: TOTAL PROTEIN 6.5 gm/dL (6.4-8.2)
== END | disposition home or self-care (01) ==
LOC: LAB 09:48
PROVIDERS: ATTEND Urology
DX: N40.1 Benign prostatic hyperplasia with lower urinary tract symptoms (principal); E29.1 Testicular hypofunction

== ENCOUNTER → 2022-03-03 | Outpatient (CLI) | payer MEDICARE ==
[2022-03-03 09:59] LABS: BASO # 0.1 10*3/uL (0.0-0.1); BASO % 0.7 % (0.0-1.0); EOS # 0.1 10*3/uL (0.0-0.4); EOS % 0.9 % (1.0-4.0); HEMATOCRIT 50.6 % (42.0-52.0); LYMPH # 1.3 10*3/uL (1.3-4.4); LYMPH % 10.2 % (27.0-41.0); MEAN CELL VOLUME 88.5 fl (80.0-94.0); MEAN CORPUSCULAR HGB 28.1 pg (27.0-31.0); MEAN CORPUSCULAR HGB CONC 31.8 g/dl (33.0-37.0); MEAN PLATELET VOLUME 10.3 fl (9.6-12.3); MONO # 1.3 10*3/uL (0.1-1.0); MONO % 10.2 % (3.0-9.0); NEUT # 9.5 10*3/uL (2.3-7.9); NEUT % 77.5 % (47.0-73.0); PLATELET COUNT AUTOMATED 259 10*3/uL (130-400); RED BLOOD COUNT 5.72 10*6/uL (4.50-5.90); RED CELL DISTRI WIDTH 14.8 % (0-14.5); WHITE BLOOD COUNT 12.3 10*3/uL (4.8-10.8)
[2022-03-03 10:13] LABS: BUN 29 mg/dl (7-24); CHLORIDE 105 mmol/L (98-107); CREATININE 1.36 mg/dL (0.70-1.30); POTASSIUM 4.9 mmol/L (3.5-5.1); SODIUM 137 mmol/L (136-145)
== END | disposition home or self-care (01) ==
LOC: LAB 09:42
PROVIDERS: ATTEND Internal Medicine Interventional Cardiology
DX: I25.10 Atherosclerotic heart disease of native coronary artery without angina pectoris (principal)

== ENCOUNTER 2022-06-03 10:54 | Emergency (ER) | payer MEDICARE ==
[2022-06-03 12:00] LABS: BASO # 0.1 10*3/uL (0.0-0.1); BASO % 0.5 % (0.0-1.0); EOS # 0.1 10*3/uL (0.0-0.4); EOS % 0.4 % (1.0-4.0); HEMATOCRIT 51.3 % (42.0-52.0); LYMPH % 7.5 % (27.0-41.0); MEAN CELL VOLUME 88.3 fl (80.0-94.0); MEAN CORPUSCULAR HGB 28.1 pg (27.0-31.0); MEAN CORPUSCULAR HGB CONC 31.8 g/dl (33.0-37.0); MEAN PLATELET VOLUME 10.6 fl (9.6-12.3); MONO # 1.2 10*3/uL (0.1-1.0); MONO % 8.9 % (3.0-9.0); NEUT # 11.3 10*3/uL (2.3-7.9); NEUT % 82.2 % (47.0-73.0); PLATELET COUNT AUTOMATED 236 10*3/uL (130-400); RED BLOOD COUNT 5.81 10*6/uL (4.50-5.90); RED CELL DISTRI WIDTH 18.1 % (0-14.5); WHITE BLOOD COUNT 13.7 10*3/uL (4.8-10.8)
[2022-06-03 12:11] LABS: ACT PARTIAL THROMBO TIME 41.7 SECONDS (20.0-32.1); INTERNATIONAL NORM RATIO 1.1 (2.0-3.5)
[2022-06-03 12:17] LABS: ALKALINE PHOSPHATASE 128 U/L (45-117); BUN 28 mg/dl (7-24); CHLORIDE 107 mmol/L (98-107); CREATININE 1.18 mg/dL (0.70-1.30); POTASSIUM 4.2 mmol/L (3.5-5.1); SGOT/AST 29 IU/L (3-35); SGPT/ALT 61 U/L (12-78); SODIUM 139 mmol/L (136-145)
== END 2022-06-03 13:03 | disposition short-term general hospital (02) ==
LOC: ED 10:54
PROVIDERS: Emergency Medicine
DX: I25.10 Atherosclerotic heart disease of native coronary artery without angina pectoris (principal); I48.91 Unspecified atrial fibrillation; I25.2 Old myocardial infarction; E78.5 Hyperlipidemia, unspecified; E11.9 Type 2 diabetes mellitus without complications; E46 Unspecified protein-calorie malnutrition; I24.9 Acute ischemic heart disease, unspecified; Z87.891 Personal history of nicotine dependence; Z95.5 Presence of coronary angioplasty implant and graft; Z95.0 Presence of cardiac pacemaker; Z91.040 Latex allergy status; Z88.8 Allergy status to other drugs, medicaments and biological substances; Z79.2 Long term (current) use of antibiotics; Z79.899 Other long term (current) drug therapy; Z79.82 Long term (current) use of aspirin

== ENCOUNTER → 2022-10-10 | Outpatient (CLI) | payer MEDICARE ==
[2022-10-12 13:06] LABS: TESTOSTERONE FREE, (DIRECT) 0.9 pg/mL (6.6-18.1)
== END | disposition home or self-care (01) ==
LOC: LAB 12:32
PROVIDERS: ATTEND Nurse Practitioner Primary Care
DX: C61 Malignant neoplasm of prostate (principal); E29.1 Testicular hypofunction